=== PATIENT | female | born 1980 | race Two or more races ===

== ENCOUNTER 2018-01-06 09:47 | Emergency (ER) | payer SELFPAY ==
[2018-01-06 09:53] VITALS: BP 120/88
--- NOTE | 2018-01-06 10:00 | ER Document Report ---
ED Oral Problem - General Chief Complaint: Sore Throat Stated Complaint: SORE THROAT Time Seen by Provider: 01/06/18 09:53 Mode of Arrival: Ambulatory Information source: Patient TRAVEL OUTSIDE OF THE [place] IN LAST 30 DAYS: No - HPI Patient complains to provider of: Sore throat - also R earache - Related Data Allergies/Adverse Reactions: Penicillins Allergy (Verified 01/06/18 09:53) Past Medical History - General Information source: Patient - Social History Smoking Status: Never Smoker Frequency of alcohol use: None Drug Abuse: None Family History: Reviewed & Not Pertinent Patient has suicidal ideation: No Patient has homicidal ideation: No Renal/ Medical History: Denies: Hx Peritoneal Dialysis GI Medical History: Reports: Hx Gastroesophageal Reflux Disease Past Surgical History: Reports: Hx Oral Surgery - cyst removal - Immunizations Immunizations up to date: Yes Hx Diphtheria, Pertussis, Tetanus Vaccination: Yes Review of Systems - Review of Systems Constitutional: No symptoms reported EENT: See HPI, Ear pain, Throat pain Cardiovascular: No symptoms reported Respiratory: No symptoms reported Gastrointestinal: No symptoms reported Musculoskeletal: No symptoms reported -: Yes All other systems reviewed and negative Physical Exam - Vital signs Vitals: Temp Pulse Resp BP Pulse Ox 97.9 F 80 18 120/88 H 97 01/06/18 09:52 01/06/18 09:52 01/06/18 09:52 01/06/18 09:52 01/06/18 09:52 - General General appearance: Appears well In distress: None - HEENT Head: Normocephalic Tympanic membrane: Injected, Loss of landmarks - on R; L TM is normal Mucous membranes: Normal Pharynx: Erythema. No: Exudate Neck: Normal - Respiratory Respiratory status: No respiratory distress Breath sounds: Normal - Cardiovascular Rhythm: Regular Heart sounds: Normal auscultation - Abdominal Inspection: Normal Tenderness: Nontender Course - Vital Signs Vital signs: Temp Pulse Resp BP Pulse Ox 97.9 F 80 18 120/88 H 97 01/06/18 09:52 01/06/18 09:52 01/06/18 09:52 01/06/18 09:52 01/06/18 09:52 Discharge - Discharge Clinical Impression: Pharyngitis Qualifiers: Pharyngitis/tonsillitis etiology: unspecified etiology Qualified Code(s): J02.9 - Acute pharyngitis, unspecified Otitis media Qualifiers: Otitis media type: unspecified Chronicity: acute Qualified Code(s): H66.90 - Otitis media, unspecified, unspecified ear Disposition: HOME, SELF-CARE Instructions: Sore Throat ([facility]) Additional Instructions: rest, take meds as prescribed, salt water gargle, return if worse Prescriptions: Sulfamethoxazole/Trimethoprim [Bactrim Ds Tablet] 1 each PO BID #14 tablet Forms: Return to Work Referrals: COURT BARROSO MD [ACTIVE STAFF] - Follow up as needed
== END 2018-01-06 09:54 | disposition home or self-care (01) ==
LOC: ER 09:47
DX: J02.9 Acute pharyngitis, unspecified (principal); H66.90 Otitis media, unspecified, unspecified ear; H92.01 Otalgia, right ear; Z88.0 Allergy status to penicillin
CPT/HCPCS: 99282

== ENCOUNTER → 2020-01-21 | Outpatient (CLI) | payer MEDICAID ==
--- NOTE | 2020-01-21 12:28 | RADIOLOGY REPORT (SQ) ---
EXAM DESCRIPTION: KUB COMPLETED DATE/TIME: 01/21/2020 11:19 am REASON FOR STUDY: GENERALIZED ABDOMINAL PAIN R10.84 GENERALIZED ABDOMINAL PAIN COMPARISON: None. NUMBER OF VIEWS: One view. TECHNIQUE: Supine radiographic image of the abdomen acquired. LIMITATIONS: None. FINDINGS: BOWEL GAS PATTERN: Nonobstructive. Moderate stool. CALCIFICATIONS: Probable phleboliths in the right hemipelvis. SOFT TISSUES: No gross mass or suggestion of organomegaly. HARDWARE: None in the abdomen. BONES: No acute fracture. No worrisome bone lesions. OTHER: No other significant finding. IMPRESSION: NO RADIOGRAPHIC EVIDENCE FOR ACUTE ABDOMINAL DISEASE. TECHNICAL DOCUMENTATION: JOB ID: [id number] [employer]- All Rights Reserved Reading location - IP/workstation name: [email or web address]
== END ==
LOC: OD 11:02
PROVIDERS: ATTEND Nurse Practitioner Family
DX: R10.84 Generalized abdominal pain (principal)
CPT/HCPCS: 74018

== ENCOUNTER → 2020-07-30 | Day surgery (SDC) | payer MEDICAID ==
[~2020-07-30] MED LIST: ACETAMINOPHEN 325 MG TABLET ONE; PROPOFOL INJ 200 MG/20 ML VIAL IV ONE
--- NOTE | 2020-07-30 10:10 | Operative Report ---
Operative Report DATE OF SURGERY: 07/30/20 Operative Report: The risk, benefits and alternatives of the procedure including the risk of bleeding, perforation requiring surgery have been explained to the patient in detail and informed consent has been obtained. Patient is placed in a left, lateral decubital position. Timeout was called. Propofol medication is administered. Rectal examination is done which did not reveal any masses, tears or fissures. An Olympus videoscope was introduced into the patient's rectum and carefully carefully advanced all the way to the cecum. Cecum was identified by the usual anatomical landmarks including the ileocecal valve as well as the appendiceal office. Photodocumentation is obtained. Scope was then sequentially pulled back via the various segments of the colon including the ascending colon, hepatic flexure, transverse colon, splenic flexure, descending colon finally into the rectosigmoid portions of the colon. Retroflexion maneuvers performed. The risks benefits and alternatives of the procedure explained to the patient in detail and informed consent is obtained.a GIF Olympus video scope was inserted into the patient's mouth and hypopharynx, the esophagus is identified intubated and insufflated, the scope was then advanced through the esophagus stomach and duodenum, retroflexion maneuver is done ,the esophagus stomach and first and second portions of the duodenum examined PREOPERATIVE DIAGNOSIS: Change of bowel habits. Epigastric pain POSTOPERATIVE DIAGNOSIS: Hiatal hernia. Gastritis status post biopsy. Right colon inflammation status post biopsy. Internal hemorrhoids OPERATION: Colonoscopy with biopsy. EGD with biopsy SURGEON: SYBIL SUAREZ ANESTHESIA: LMAC TISSUE REMOVED OR ALTERED: As noted above. COMPLICATIONS: None. ESTIMATED BLOOD LOSS: None. INTRAOPERATIVE FINDINGS: As noted above. PROCEDURE: Patient tolerated the procedure well. No immediate postprocedure complications are noted. Patient is discharged in good condition. Discharge date 07/30/2020. Discharge diet: Regular. Discharge activity: Regular. 2 to 3-week follow-up to discuss findings. Patient is instructed to call the office or proceed to the emergency room should there be any further problems or questions. Wait on the pathology.
[2020-07-30 10:44] VITALS: BP 108/85
== END ==
LOC: END 09:02
PROVIDERS: ATTEND Internal Medicine Gastroenterology
DX: K29.50 Unspecified chronic gastritis without bleeding (principal); K52.9 Noninfective gastroenteritis and colitis, unspecified; K59.00 Constipation, unspecified; K64.8 Other hemorrhoids; K44.9 Diaphragmatic hernia without obstruction or gangrene; K21.9 Gastro-esophageal reflux disease without esophagitis; Z79.899 Other long term (current) drug therapy; Z88.0 Allergy status to penicillin; Z03.818 Encounter for observation for suspected exposure to other biological agents ruled out
CPT/HCPCS: 43239; 45380; 88305 ×2; 00813; J3490; J2704; 813